=== PATIENT | male | born 1925 | race Caucasian/White ===

== ENCOUNTER 2016-06-03 12:32 | Inpatient (IN) | payer MEDICARE ==
[~2016-06-03] VITALS: Ht 160 cm; Wt 67.3 kg
--- NOTE | 2016-06-03 12:44 | ED.REPORT ---
HPI-General Illness Date of Service Jun 03, 2016 ED Provider: Jimbo Richmond DO An 89 year old male with a history of chronic leg weakness and back injury is brought to the ED via EMS due to urinary retention and lower abdominal distension. The pt had a recent kidney infection and was placed on antibiotics, which are associated with constipation. The pt has been unable to urinate at all today, though he urinated last night per family. He also reports that he has been unable to have a normal bowel movement recently. His last bowel movement was yesterday. These symptoms are accompanied by nasal congestion and decreased food intake. The pt denies chest pain, incontinence, or saddle numbness. The pt has chronic leg weakness which has been getting progressively worse. The weakness worsened dramatically in the last two weeks to the point that he is unable to get out of bed on his own. Per pt's family, he has been expressing suicidal ideation recently. He states that he is "tired of the pain and tired of everything," though he states that he will not take his own life. Nursing Notes Stated Complaint: POSSIBLE KIDNEY INFECTION Nursing Notes Reviewed: Yes Allergies: Coded Allergies: No Known Allergies (Unverified , 06/03/16) General Time Seen by MD: 12:43 Chief Complaint Other Hx Obtained From: Patient, Other family..., EMS Arrived By: Ambulance Sudden in Onset?: No Recent Healthcare: No recent hospitalization, Recent doctor visit Past Medical History Past Medical History depression kidney infection chronic leg weakness with falls back injury Past Surgical History none reported Smoking History Unknown if Ever Smoker Social History Other Social History: Good social support Ambulatory Status Independent Review of Systems urinary retention decreased food intake denies saddle numbness Full Review of Systems Ears / Nose / Throat: Reports: Nasal congestion Respiratory: Denies: Non-productive cough, Shortness of breath Cardiovascular: Denies: Chest pain GI: Reports: Abdominal pain, Constipation Male: Denies Incontinence Musculoskeletal: Denies: Back pain, Neck pain Skin: Denies Rash Complete sys rev & neg: except as marked. Physical Exam Vital Signs Vital Signs Date Time Temp Pulse Resp B/P Pulse Ox O2 Delivery O2 Flow Rate FiO2 06/03/16 15:06 36.8 69 12 142/48 100 Room Air 06/03/16 14:52 69 12 142/48 100 Room Air 06/03/16 13:07 36.8 68 18 177/62 100 Initial VS: Reviewed General/Constitutional: Awake, Alert eyes closed Head / Eyes: Atraumatic, Normocephalic, PERRL, EOMI ENT: Atraumatic, Airway patent Mouth: Positive: Mucous membranes dry Neck: Atraumatic, Supple, Full range of motion Respiratory / Chest: Atraumatic, Breath sounds NL, Breath sounds = bilat, No respiratory distress Cardiovascular: Heart rate NL, Regular rhythm, Heart sounds NL Abdomen: Atraumatic, Soft, Non-tender mild distention Back: Atraumatic, Full range of motion Upper Extremities Upper Extremity / MS: Atraumatic, Full range of motion Lower Extremity / Pelvis / MS: Atraumatic, Full range of motion lower extremities globally weak 4/5 without focal deficit Skin: Atraumatic, Color NL, No rash, Warm, Dry Neurologic: Oriented X3, Speech NL, No motor deficits, No sensory deficits peroneal sense intact Psychiatric: Affect NL depressed with suicidal thoughts denies intent Interpretation & Diagnostics Lab Results Interpretation Result Diagram: 06/03/16 1349 06/03/16 1349 Test 06/03/16 13:13 06/03/16 13:49 Urine Color Straw (YELLOW) Urine Appearance Clear (CLEAR,HAZY) Urine pH 8.0 (5.0-8.0) Urine Specific [place] 1.010 (1.003-1.035) Urine Protein Negativemg/dL (NEG,TRACE) Urine Glucose (UA) Negativemg/dL (NEGATIVE) Urine Ketones Tracemg/dL (NEGATIVE) Urine Occult Blood Trace (NEGATIVE) Urine Nitrite Negative (NEGATIVE) Urine Bilirubin Negative (NEGATIVE) Urine Urobilinogen Normalmg/dL (NORMAL) Urine Leukocyte Esterase Negative (NEGATIVE) Urine RBC 0-2/hpf (0-2) Urine WBC 0-5/hpf (0-5) Urine Epithelial Cells Occasional/hpf (NONE-MOD) Urine Crystals Amorphous phosphates Urine Bacteria Few/hpf (NONE-FEW) Urine Hyaline Casts None/lpf (NONE) Urine Granular Casts None seen (NONE SEEN) Urine Waxy Casts None seen (NONE SEEN) Urine Red Blood Cell Casts None seen (NONE SEEN) Urine White Blood Cell Casts None seen (NONE SEEN) Urine Mucus None seen (None Seen) Urine Trichomonas None seen (NONE SEEN) Urine Yeast None (NONE SEEN) Urinalysis Comment None Urine Culture Reflexed Not indicated White Blood Count 7.2th/mm3 (3.8-10.1) Red Blood Count 3.37mil/mm3 (4.40-5.80) Hemoglobin 10.9g/dL (13.8-17.2) Hematocrit 32.1% (41.0-50.0) Mean Corpuscular Volume 95.3fL (81-100) Mean Corpuscular Hemoglobin 32.3pg (27.0-35.0) Mean Corpuscular Hemoglobin Concent 34.0% (32.0-37.0) Red Cell Distribution Width 13.2% (12.3-15.4) Platelet Count 286bil/L (150-400) Neutrophils (%) (Auto) 79.0% (40-74) Lymphocytes (%) (Auto) 11.1% (14-46) Monocytes (%) (Auto) 9.2% (4-12) Eosinophils (%) (Auto) 0.3% (0-5) Basophils (%) (Auto) 0.1% (0-3) Sodium Level 125mEq/L (134-144) Potassium Level 4.0mEq/L (3.5-5.2) Chloride Level 87mEq/L (97-108) Carbon Dioxide Level 25mmol/L (18-29) Blood Urea Nitrogen 21mg/dL (8-27) Creatinine 1.24mg/dL (0.76-1.27) Estimat Glomerular Filtration Rate 58mL/min (>59) Glucose Level 99mg/dL (60-99) Calcium Level 8.4mg/dL (8.5-10.1) Total Bilirubin 0.7mg/dL (0.0-1.2) Aspartate Amino Transf (AST/SGOT) 32U/L (0-50) Alanine Aminotransferase (ALT/SGPT) 14U/L (0-44) Alkaline Phosphatase 62U/L (25-160) Total Protein 6.3g/dL (6.4-8.4) Albumin 3.5g/dL (3.4-5.0) X-Ray Abdominal Interpretation IMPRESSION: Moderate stool consistent with constipation. No gross obstruction. Dictated by: Rhonda Acuña M.D. on 06/03/2016 at 13:53 Approved by: Rhonda Acuña M.D. on 06/03/2016 at 13:53 Interpretation / Wet Read by: Interpret - Radiologist Re-Eval/Medical Decision Med Decision/Clinical Course Patient presents with a host of different complaints, ultimately he has moderate to severe hyponatremia with a sodium of 125, urinary retention which is likely a combination of BPH and recent anticholinergic use (Benadryl). He has ongoing chronic back pain without new focal neurologic numbness or weakness and without loss of perineal sensation. He has severe constipation. Additionally he has reported thoughts of suicide and self-harm. He is seen by social work for this and this is related to the admission team. Source of Hx: Old records Time of Eval: 12:43 Re-Evaluation/Progress Note: Pt and family informed of the need for admission during the initial interview. Pt and family understand and agree with the plan. All questions are addressed at this time. Consultation : Referral / Consult Name: Arcelia Downing MD Consulted With: Hospitalist Call Returned at: 15:10 Horse Riding Coach Or Instructor: Agrees with eval, Agrees with plan, Accepts admit Note: Spoke with Dr. Downing, hospitalist, regarding the pt's case. Dr. Downing agrees with the evaluation and agrees to admit the pt. Counseled Regarding: Diagnosis, Lab results, Need for admission Discharge & Departure Primary Impression: Hyponatremia Disposition: ADMITTED TO HOSPITAL Discharge Condition All VS Reviewed: Yes Condition: Stable Referrals: Thomas Urias MD (PCP) Khanh Zamarripa Attestation Portions of this note were transcribed by Waldemar Smith I, Dr. Richmond personally performed the history, physical exam and medical decision-making; I reviewed and confirmed the accuracy of the information in the transcribed note. Signed by: Milena Velázquez, 06/03/16 and 13:23. copies to: Khanh Zamarripa DO; Thomas Urias MD, Timothy S DO Jun 03, 2016 12:44 WALDEMAR SMITH Jun 03, 2016 13:29
[2016-06-03 13:07] VITALS: BP 177/62; PULSE 68; RESP 18; O2SAT 100
[2016-06-03 13:59] LABS: BASOPHILS % (AUTO) 0.1 % (0-3); EOSINOPHILS % (AUTO) 0.3 % (0-5); MONOCYTES % (AUTO) 9.2 % (4-12); Mean Corpuscular Hemoglobin 32.3 pg (27.0-35.0); Mean Corpuscular Volume 95.3 fL (81-100); Platelet Count 286 bil/L (150-400)
--- NOTE | 2016-06-03 13:59 | DRSVH ---
PROCEDURE: X-RAY ACUTE ABDOMINAL SERIES ([id number]) INDICATIONS: abd pain, constipation, unable to ambulate TECHNIQUE: One view chest and two views of the abdomen were acquired. COMPARISON: None. FINDINGS: Surgical changes and devices: None. Chest: Chronic interstitial changes are present within the lungs. Heart size is normal. No pleural e ffusions. No pneumoperitoneum. Abdomen: Bowel gas pattern is normal. Moderate stool is present. No suspicious calcifications. Vis ualized solid organ contours appear normal. Bones: No suspicious bony lesions. IMPRESSION: Moderate stool consistent with constipation. No gross obstruction. Dictated by: Rhonda Acuña M.D. on 06/03/2016 at 13:53 Approved by: Rhonda Acuña M.D. on 06/03/2016 at 13:53
[2016-06-03 14:21] LABS: APPEARANCE,URINE CLEAR (CLEAR,HAZY); COLOR,URINE STRAW (YELLOW); OCCULT BLOOD,URINE TRACE (NEGATIVE); UROBILINOGEN,URINE NORMAL (NORMAL)
[2016-06-03] MEDS ORDERED: 0.9% Sodium Chloride 1,000 ML IV SCH ×2 (14:30→15:18)
[2016-06-03 14:52] VITALS: BP 142/48; PULSE 69; RESP 12; O2SAT 100
[2016-06-03 15:06] VITALS: BP 142/48; PULSE 69; RESP 12; O2SAT 100
[2016-06-03] MEDS ORDERED: Ondansetron 2 mg/mL 2 mL Inj IVPUSH PRN (15:20)
--- NOTE | 2016-06-03 15:30 | PCM.HPMED ---
Subjective Date of Service Jun 03, 2016 Primary Provider: Admitting Physician: Yaakov Milan MD Primary Care Physician: Thomas Urias MD Attending Physician: Yaakov Milan MD Chief Complaint: unable to void since yesterday HISTORY was OBTAINED FROM PATIENT / MEDITECH NOTES History of present illness 89Y M, just takes vit D, eats very well, drinks little, c/o unable to void since yesterday, associated constipation - verified on today's KUB, no GERD symptoms, found to have Na 125. Gradual debility per family, baseline 1 person assist w/ walker. no saddle paresthesia, intermittent fingers feet paresthesia/swelling. no weight gain/loss. per daughter SI last week and asked family to take his gun. He denies depression, just fatigued and chronic back pain from compression fractures. productive cough started yesterday. In the ER NS1L, morphine 1mg, coude rios w/ 400cc UOP, negative UA for infection, In the hough, Cr improved after NS1L but Na stayed same, no less. Review of Systems - none of the following - F/C/sick contact / wt change/ DAVIS / / cp / acid reflux / n/v/diarrhea / bleeding/bruising / rash ambulates baseline right calf larger than left Past Medical History FE-def anemia 2009 EGD/colonoscopy1.Mild distal esophagitis. Mild gastritis with punctate superficial erosions. Duodenitis with small ulcers..Small hiatal hernia. no follow up depression kidney infection chronic leg weakness with falls back injury hernia repair Social occasional EtOH distant social smoker FAMILY HX gastric cancer Exam on admission 2L O2 NAD A and O x 3 mood affect WNL NC/AT no icterus no injected eyes EOMI PERRL /no pharyngeal lesions/ no oral lesions / hearing intact Supple neck mild crackles bilateral, equal chest rise / no accessory muscle use / speaks in full sentences / no rrw RRR S1 S2 / no mrg / 2+ radial pulses Soft nt nd + BS no hepatosplenomegaly No sanchez edema no cyanosis no ecchymosis of lower extremities No rash / no jaundice ULRICH [id number] UA - negative nitrite and negative leukocyte esterase negative yeast left shift LFT neg Imaging X-RAY ACUTE ABDOMINAL SERIES ([id number]) INDICATIONS: abd pain, constipation, unable to ambulate TECHNIQUE: One view chest and two views of the abdomen were acquired. COMPARISON: None. FINDINGS: Surgical changes and devices: None. Chest: Chronic interstitial changes are present within the lungs. Heart size is normal. No pleural effusions. No pneumoperitoneum. Abdomen: Bowel gas pattern is normal. Moderate stool is present. No suspicious calcifications. Visualized solid organ contours appear normal. Bones: No suspicious bony lesions. IMPRESSION: Moderate stool consistent with constipation. No gross obstruction. Active issues and reason for admission Hyponatremia, unclear if combination or just euvolemic-Siadh, suspect chronic -- U Na 50, Uric acid normal on admission, U Osm pending, TSH, BNP, d-dimer --already on fluid restriction at home per family - eats food, drinks little --no better w/ 1LNS, 75cc./hr saline but now crackles developed, hold IVF --no home medications --pending echo TYESHA, component --Creatinine improved rios and 1L NS Urinary retention/constipation, likely associated w/ BPH -- Bladder rest with Rios, history of UTI - repeat UA tomorrow, start flomax now -- MiraLAX daily -- IV fluids --consider renal U/S if worse Cr to evaluate for hydronephrosis Suicidal ideation, denies currently, just c/o fatigue -- Pending psychiatry, Dr Isabel, hopefully recs for NSRI/SSRI that can help w/ chronic back pain -- Pending vitamin D/B12/folate levels, evaluate pseudodementia/depression Debility/poor mobility/chronic back pain due to compression fractures -- Pending PT -- vit D 50 k now New O2, prn duonebs Chronic issues known prior to admission, present on admission GERD/duodenitis history 2009 -- PPI for now Diet regular DVT prophylaxis lovenox Code full Disposition inpatient Assessment and plan were discussed with patient family. Allergies Coded Allergies: No Known Allergies (Unverified , 06/03/16) PMH Social History Hx Alcohol Use: Yes (occasional) Hx Substance Use: No Smoking Status: Unknown if Ever Smoker Exam Vital Signs Vital Sign - Last Date Time Temp Pulse Resp B/P Pulse Ox O2 Delivery O2 Flow Rate FiO2 06/03/16 15:06 36.8 69 12 142/48 100 Room Air Lab and Diagnostics Result Diagram: 06/03/16 1349 06/03/16 1349 Arcelia Downing MD Jun 03, 2016 15:30
--- NOTE | 2016-06-03 16:00 | NUR ---
Arrival Pt arrived to the floor from ER. Admission requirements met by this RN, pts spouse and daughter states he does not take meds daily at home, that he only takes an iron and multivitamin daily. Pt also states he has a shot once every 6 weeks for his bones, unsure of the medication name. Pt has a f/c for urine retention, pt unable to ambulate he states because of prior injuries where he had fallen off a ladder.
[2016-06-03 16:29] VITALS: BP 176/82; PULSE 65; RESP 18; O2SAT 99
[2016-06-03] MEDS ORDERED: Albuterol-Ipratropium 3 mL Inhalation Solution NEB PRN (16:50)
[2016-06-03] MEDS: Pantoprazole 20 mg ER24 Tablet PO SCH (17:24)
[2016-06-03] MEDS: Polyethylene Glycol (PEG) 17 Gm Powder PO SCH (17:25)
[2016-06-03] MEDS ORDERED: hydrALAZINE 20 mg/mL Inj IV PRN (18:05)
[2016-06-03] MEDS ORDERED: FERR325C PO (18:34)
[2016-06-03] MEDS ORDERED: CALC-140 PO (18:36)
[2016-06-03 19:37] VITALS: BP 137/61; PULSE 95; RESP 20; O2SAT 97
--- NOTE | 2016-06-04 00:34 | NUR ---
Pain FELDT score 1-2 earlier this evening Pt given 2 tablets of tyelnol Currently resting comfortably on his left side. Turning pt q2-3 hours Care ongoing.
[2016-06-04 04:25] VITALS: BP 132/70; PULSE 70; RESP 20; O2SAT 97
[2016-06-04 06:30] LABS: APPEARANCE,URINE HAZY (CLEAR,HAZY); COLOR,URINE YELLOW (YELLOW); OCCULT BLOOD,URINE MODERATE (NEGATIVE); PH,URINE 6.5 (5.0-8.0); UROBILINOGEN,URINE NORMAL (NORMAL)
--- NOTE | 2016-06-04 06:47 | PCM.PNMED ---
Subjective Date of Service Jun 04, 2016 Subjective HPI as per admitting physician: History of present illness 89Y M, just takes vit D, eats very well, drinks little, c/o unable to void since yesterday, associated constipation - verified on today's KUB, no GERD symptoms, found to have Na 125. Gradual debility per family, baseline 1 person assist w/ walker. no saddle paresthesia, intermittent fingers feet paresthesia/swelling. no weight gain/loss. per daughter SI last week and asked family to take his gun. He denies depression, just fatigued and chronic back pain from compression fractures. productive cough started yesterday. In the ER NS1L, morphine 1mg, coude rios w/ 400cc UOP, negative UA for infection, In the hough, Cr improved after NS1L but Na stayed same, no less. Review of Systems - none of the following - F/C/sick contact / wt change/ DAVIS / / cp / acid reflux / n/v/diarrhea / bleeding/bruising / rash ambulates baseline right calf larger than left Past Medical History FE-def anemia 2009 EGD/colonoscopy1.Mild distal esophagitis. Mild gastritis with punctate superficial erosions. Duodenitis with small ulcers..Small hiatal hernia. no follow up depression kidney infection chronic leg weakness with falls back injury hernia repair S: Pt without any acute complaints, denies suicidal ideation at this time - denies f/c/sob/cp or new weakness - rios in place. baseline sedentary lifestyle, unable to ambulate d/t prior injury Exam Vital Signs Vital Sign - Last Date Time Temp Pulse Resp B/P Pulse Ox O2 Delivery O2 Flow Rate FiO2 06/04/16 04:25 36.7 70 20 132/70 97 Room Air Intake and Output 06/03/16 06/03/16 06/04/16 Cumulative From/Thru 15:00 23:00 07:00 06/03/16 13:07 - 06/04/16 05:07 Intake Total 1000 ml 1000 ml Output Total 300 ml 300 ml Balance 1000 ml -300 ml 700 ml Intake IV Total 1000 ml 1000 ml Output Urine Total 300 ml 300 ml Exam saturating well on RA NAD A and O x 3 mood affect WNL NC/AT no icterus no injected eyes EOMI PERRL /no pharyngeal lesions/ no oral lesions / hearing intact Supple neck mild crackles bilateral, good inspiratory effort, equal chest rise / no accessory muscle use / speaks in full sentences RRR S1 S2 / no mrg / 2+ radial pulses Soft nt nd + BS no hepatosplenomegaly No sanchez edema no cyanosis no ecchymosis of lower extremities No rash / no jaundice ULRICH IVs and Medications Medications Reviewed: Medications were reviewed in detail Lab and Diagnostics Result Diagram: 06/03/16 1349 06/03/16 2210 X-Rays, CTs and MRIs xray abdomen IMPRESSION: Moderate stool consistent with constipation. No gross obstruction. Dictated by: Rhonda Acuña M.D. on 06/03/2016 at 13:53 Cardiac Echo Impressions echo pending Assessment & Plan Hyponatremia, unclear if combination or just euvolemic-Siadh, suspect chronic -- U Na 50, Uric acid normal on admission, U Osm pending, TSH, BNP, d-dimer --already on fluid restriction at home per family - eats food, drinks little --no better w/ 1LNS, 75cc./hr saline but now crackles developed, hold IVF --no home medications --pending echo TYESHA, component --Creatinine improved rios and 1L NS Urinary retention/constipation, likely associated w/ BPH -- Bladder rest with Rios, history of UTI - repeat UA tomorrow, start flomax now -- MiraLAX daily -- IV fluids --consider renal U/S if worse Cr to evaluate for hydronephrosis Suicidal ideation, denies currently, just c/o fatigue -- Pending psychiatry, Dr Isabel, hopefully recs for NSRI/SSRI that can help w/ chronic back pain -- Pending vitamin D/B12/folate levels, evaluate pseudodementia/depression Debility/poor mobility/chronic back pain due to compression fractures -- Pending PT -- vit D 50 k now New O2, prn duonebs Chronic issues known prior to admission, present on admission GERD/duodenitis history 2009 -- PPI for now Diet regular DVT prophylaxis lovenox Code full Disposition inpatient Assessment and plan were discussed with patient family. Pain Evaluation: Adequate Pain Control GI Prophylaxis: Proton Pump Inhibitor VTE Prophylaxis: Sub-Q Enoxaparin Resuscitation Status: DNR/DNI:Do Not Resuscitate/Intubate Time spent 35 minutes spent sruthi pruitt and Ambrose Doran DO Jun 04, 2016 06:47
[2016-06-04 08:07] LABS: Free Thyroxine Index 0.8 (1.2-4.9); T3 Uptake 27 % (24-39); Thyroxine (T4) 3.1 ug/dL (4.5-12.0)
[2016-06-04 09:22] LABS: Mean Corpuscular Hemoglobin 32.4 pg (27.0-35.0); Mean Corpuscular Volume 96.1 fL (81-100)
[2016-06-04 09:28] VITALS: BP 118/57; PULSE 70; RESP 16; O2SAT 98
[2016-06-04] MEDS: Polyethylene Glycol (PEG) 17 Gm Powder PO SCH (09:29)
[2016-06-04] MEDS: Pantoprazole 20 mg ER24 Tablet PO SCH (09:29)
--- NOTE | 2016-06-04 10:54 | NUR ---
Problems Swallowing Contacted Dr. Loja with the following cook page: Patient does not appear to tolerate liquids, coughed when trying to give Miralax and audible gurgling could be heard. Speech Eval seems appropriate. Please advise. Thank you. Alison PRICE
--- NOTE | 2016-06-04 11:41 | NUR ---
Thickened Liquids/Miralax Contacted Dr. Loja with the following cook page: Patient evaluated by Speech Therapist, she recommends thickened liquids and stated Miralax thins out thickeners, so a pill would be best. Please advise. Thank you. Alison PRICE
--- NOTE | 2016-06-04 11:53 | NUR ---
Evaluation completed. Rec: [place]/Regular with medication whole in pureed. Spoke with RN regarding recommendation for lax pill as Miralax can thin out thickened liquids. CV RN to follow Please go to "Notes" then click on "Assessments and Notes" (bottom left corner of screen). Then select appropriate discipline tab on top of screen.
--- NOTE | 2016-06-04 12:17 | DRSVH ---
[facility] [address] [place] [address] Echocardiogram Report Name: LUBNA BREEN Jemal e: 06/04/2016 Height: 63 in Hospital Exam Location: [facility] Weight: 142 lb Gender: Male BSA: 1.7 m2 : 1925 Age: 89 yrs BP: 132/70 mmHg Reason For Study: WEAKNESS Ordering Physician: HOSPITALIST [facility] Performed By: Florencio Chavez Referring Physician: Dr. Paula Urias Interpretation Summary The left ventricle is normal in size. There is moderate concentric left ventricular hypertrophy. There is mild biatrial enlargement. The IVC is of normal diameter and collapses greater than 50% with a sniff. This suggests a low right atrial pressure of 3 mm Hg. No other echocardiographic abnormalities seen. Procedure: A two-dimensional transthoracic echocardiogram with color flow and Doppler was performed. The study quality was technically good. There is no prior echocardiogram noted for this patient. The patient was in normal sinus rhythm during the exam. Left Ventricle: The left ventricle is normal in size. There is moderate concentric left ventricular hypertrophy. The ejection fraction is estimated to be 75-80%. There are no focal wall motion abnormalities. Assessment of diastolic parameters indicates normal left ventricular diastolic function and normal filling pressures. Right Ventricle: The right ventricle is normal in size and function. Atria: There is mild biatrial enlargement. The interatrial septum is intact with no evidence for an atrial septal defect. Mitral Valve: There is moderate mitral annular calcification. There is trace mitral regurgitation. Aortic Valve: The aortic valve is trileaflet. The aortic valve is mildly calcified. Leaflet mobility is minimally reduced. There is moderate aortic valve sclerosis. There is no aortic valve stenosis. There is mild aortic regurgitation. Tricuspid Valve: The tricuspid valve is normal in structure and function. There is mild tricuspid regurgitation. The right ventricular systolic pressure is estimated at 32 mmHg assuming a right atrial pressure of 3 mm Hg. Pulmonic Valve: The pulmonic valve is normal in structure and function. There is trace pulmonic regurgitation. Great Vessels: The aortic root is normal size. The dimensions of the ascending aorta are normal. The pulmonary artery is normal size. The IVC is of normal diameter and collapses greater than 50% with a sniff. This suggests a low right atrial pressure of 3 mm Hg. Pericardium/ Pleura There is no pericardial effusion. There is no pleural effusion. MMode/2D Measurements & Calculations LVIDd: 4.2 cm LA dimension: 3.6 cm RA long axis LVOT diam: 2.3 cm LVIDs: 2.2 cm Ao root diam FS: 47.8 % LA A2 area: 22.8 cm RA area EPSS: 0.87 cm LA A4 area: 24.8 cm Aortic Jxn: 2.1 cm IVSd: 1.5 cm LA length (vol) : 21.6 cm asc Aorta Diam LVPWd: 1.3 cm RA vol LA vol: 82.9 ml : 81.8 ml Ao Arch Diam (Prox LA vol index RA Trans): 2.9 cm : 48.9 mm2 IVC diam: 1.9 cm LV lassiter. diameter/BSA LV sys. diameter/BSA (cm/m^2): 2.5 (cm/m^2): 1.3 Doppler Measurements & Calculations Ao V2 max MV E max gene MV E/A: 1.2 TR max gene : 135.6 cm/sec : 86.4 cm/sec Med Peak E' Gene : 267.4 cm/sec Ao max P.4 mmHg MV A max gene TR max PG Ao mean P.3 mmHg : 71.0 cm/sec E/E' med: 22.0 : 28.6 mmHg LVOT Max Gene Pulm A Revs Dur PA V2 max : 82.8 cm/sec : 75.4 cm/sec MV A dur PA mean PG INDIGO(I,D): 2.6 cm : 0.13 sec : 1.5 mmHg sev ratio: 0.64 AI P1/2t: 503.8 msec AI dec slope : 233.6 cm/s2c MV dec time: 0.21 sec Ao V2 mean LV V1 max PG PA V2 mean : 99.8 cm/sec : 58.3 cm/sec Ao V2 VTI: 28.8 cm LV V1 VTI PA pr(Accel) INDIGO(V,D): 2.5 cm2 : 18.6 cm : 29.1 mmHg INDIGO indexed to BSA Pulm A Revs Dur - MV (cm^2/m^2): 1.6 A Dur: -0.05 msec Reading Physician:12:16 PM
--- NOTE | 2016-06-04 12:49 | NUR ---
Bowel Management Contacted Dr. Loja with the following cook page: Patient was unable to fully take Miralax this morning due to swallowing issues, Speech Therapist recommended a pill over the Miralax due to Miralax degrading thickener. Patient's family requesting something for patient's constipation. Please advise. Thank you. Alison PRICE
[2016-06-04] MEDS: Senna-Docusate 8.6-50 mg Tablet PO SCH ×2 (13:00→13:12)
--- NOTE | 2016-06-04 13:35 | NUR ---
Evaluation completed. Please go to "Notes" then click on "Assessments and Notes" (bottom left corner of screen). Then select appropriate discipline tab on top of screen.
[2016-06-04 14:09] VITALS: BP 113/50; PULSE 75; RESP 18; O2SAT 98
--- NOTE | 2016-06-04 14:24 | NUR ---
CRISTI signed by pt's MARTHA
[2016-06-04 14:44] VITALS: BP 136/79; PULSE 89; RESP 18; O2SAT 94
[2016-06-04 18:23] VITALS: BP 130/64; PULSE 79; RESP 18; O2SAT 97
--- NOTE | 2016-06-04 20:15 | ER ---
[address] [address] EMERGENCY DEPARTMENT REPORT PATIENT: LUBNA BREEN : 1925 MR#: [id number] ADMIT: 06/03/2016 JOB ID: [id number] HISTORY: This is an 89-year-old, gentleman who was hospitalized on the [facility]. The patient was referred to me by Dr. Downing, but the doctor covering today is Dr. Loja and I spoke to him. I also talked to the nurse working with the patient by the name of Alison, and I also told talked to the patient's daughter and . Apparently, the patient has recently been verbalizing intent to harm himself. He had a loaded firearm on his bedside standing and he asked his to remove that. There has been a reduction in his functional capacity, simply his appetite is reduced. He is not sleeping. He states he is tired of the pain. He has also been having some trouble swallowing that makes input limited, intake limited. According to the , he has never attempted suicide before though his father did kill himself. The family assures me that they have removed the guns from his possession. According to Dr. Loja, the patient carries a diagnosis of depression. They are working out severe dementia TSH, B12, folate were fine. T3 and free T4 are low. TSH is awaited and that maybe something they need to work on. The patient apparently had a recent kidney infection. He struggled with pain issues related to back injury. He had abdominal distention. The urinary retention and the abdomen and distention glucose, related partly to a benign prostatic hypertrophy and the use of anti cholinergic medications. Other abnormalities include a borderline low sodium of 125, GERD, chronic iron-deficiency anemia and issues related to gastritis duodenitis and esophagitis and the patient recently had false. He has never been treated for depression before, according to the . He has never seen a psychiatrist before or had any kind of counseling. FAMILY HISTORY: Father killed himself but there appears to be no clear family history of bipolar disorder or schizophrenia. DRUGS AND ALCOHOL: Former smoker. Has not smoked for more than a year ago. Occasional alcohol. There is no clear history of an alcohol use disorder. MENTAL STATUS EXAMINATION: Difficult to watch. IMPRESSION: [place] IWould still go with major depressed episode, rule out major neurocognitive disorder, possibly vascular, with depression. [place] IIDeferred. [place] IIIRecent falls, recent urinary tract infection, issues related to esophagitis, gastritis, hyponatremia, gastroesophageal reflux disease, benign prostatic hypertrophy with urinary retention. [place] IVProblems related to living arrangements and level of care. [place] VGlobal assessment of functioning is . TREATMENT PLAN: 1. I discussed with Dr. Loja the possibility of using an antidepressant. I discussed that with the family. The daughter and the have power of securities attorney. They are agreeable to a trial. The patient does have difficulty swallowing. I spoke to the swallow eval specialist and she is going to put the patient on a nectar thick diet. 2. We will use mirtazapine since it will help with sleep and also target increase in reduced appetite. We will start with 7.5 mg a day, will watch for morning sedation. As far as placement goes, I think it may be important to involve the social service manager in helping with a higher level of placement. The patient's family has a studio apartment which has wheelchair access and they feel that that can be an option but they are going to require assistance with his management. I strongly feel that a short stay at a [facility] facility for 2-4 weeks to get the patient back on his feet would be very important and at the end of that depending on what his functional capacity is, deciding his placement would probably be the best way to go. He may need further increase in mirtazapine and I am going to request Psychiatry follow up with this patient if that is needed.
[2016-06-04 20:24] VITALS: BP 96/53; PULSE 83; RESP 18; O2SAT 96
--- NOTE | 2016-06-05 03:31 | NUR ---
Mirtazapine Pt took first does tonight, and has tolerated it well. Pt has been resting peacefully, easily aroused, pt denies anxiety or any SI.
[2016-06-05 05:06] VITALS: BP 138/72; PULSE 62; RESP 19; O2SAT 96
[2016-06-05 07:25] VITALS: BP 138/70; PULSE 67; RESP 18; O2SAT 97
[2016-06-05 07:47] VITALS: RESP 16; O2SAT 97
[2016-06-05] MEDS: Senna-Docusate 8.6-50 mg Tablet PO SCH ×2 (09:26→21:53)
[2016-06-05] MEDS: Pantoprazole 20 mg ER24 Tablet PO SCH (09:27)
--- NOTE | 2016-06-05 10:00 | NUR ---
Status Pt seen by Dr. Milan this am. To be placed on 1 L fluid restriction. Sign on pt door. Lex pimentel MD to determine whether to continue miralax as this would be most of days fluids. Pt stable and A&O. No complaints.
--- NOTE | 2016-06-05 10:03 | NUR ---
Social Work Initial Assessment: SW met with patient at bedside to discuss discharge plan. Information also verified with daughter Jeanne, . Patient is a 89 year old male admitted on 06/03/16 for hyponatremia. Patient payer as [employer]. Patient PCP as [facility] at [facility]. Patient resides with in [place]. Patient has no previous HHC or SNF history. Patient has a walker for use at home. Patient states having AD on file. Patient pharmacy of choice as [facility]. Patient daughter states patient and cared for each other needs and patient was driving prior to admit. PT recommendations discussed with patient and daughter. Choice list provided for review. Patient and family to review SNF choice list and to contact SW with [facility]. SNF transfer also pending [employer] auth. SW to follow. PLAN: Home with previously. Plan is SNF pending choice and [employer] auth. SW to follow pending clinical course Adriana HURT Addendum: 06/05/16 at 1008 by BRIAN GALEANO Amended: Links added. Addendum: 06/05/16 at 1642 by BRIAN GALEANO SW received phone call from daughter requesting referral to [facility] and [facility] WILFRIDO to send referral for review tomorrow. Adriana HURT
--- NOTE | 2016-06-05 10:45 | NUR ---
Activity Pt up and ambulated to javier with PT. Up in chair at bedside. A&Ox4. Humphrey to gravity drainage
[2016-06-05 12:07] LABS: Vitamin D, 25-Hydroxy 47.2 ng/mL (30.0-100.0)
[2016-06-05 12:15] VITALS: BP 121/67; PULSE 74; RESP 18; O2SAT 99
--- NOTE | 2016-06-05 14:21 | PCM.PNMED ---
Subjective Date of Service Jun 05, 2016 Subjective pt was more stronger today, eating well denied DAVIS, dizziness, Na 131 from 126 with fluid restriction. Exam Vital Signs Vital Sign - Last Date Time Temp Pulse Resp B/P Pulse Ox O2 Delivery O2 Flow Rate FiO2 06/05/16 12:15 36.8 74 18 121/67 99 Room Air Intake and Output 06/04/16 06/04/16 06/05/16 Cumulative From/Thru 15:00 23:00 07:00 06/03/16 13:07 - 06/05/16 06:39 Intake Total 480 ml 20 ml 1760 ml Output Total 350 ml 200 ml 850 ml Balance 130 ml -180 ml 910 ml Intake Oral 480 ml 0 ml 740 ml IV Total 0 ml 20 ml 1020 ml Output Urine Total 350 ml 200 ml 850 ml Exam NAD, comfortably laying down on the bed no JVD, MMM, no LAD, no nystagmus, PERRLA RRR, nl s1, s2 no mrg CTAB, no w,c S,ND,NT,normoactive BS+ warm, no edema, pulses 2/2 IVs and Medications Medications Reviewed: Medications were reviewed in detail Lab and Diagnostics Result Diagram: 06/04/16 0745 06/04/16 0745 X-Rays, CTs and MRIs xray abdomen IMPRESSION: Moderate stool consistent with constipation. No gross obstruction. Dictated by: Rhonda Acuña M.D. on 06/03/2016 at 13:53 Cardiac Echo Impressions echo pending Assessment & Plan acute, active #Hyponatremia, POA, seemed euvolemic given improvement with fluid restriction, [place] level, exam, possible SIADH, unclear onset but stated that he had low Na several yrs ago. -ft4/t4 suggestive of likely sick euthyroid, will repeat TSH, FT4 -continue fluid restriction <1liter, avoid IVF, #Urinary retention/constipation, likely associated w/ BPH --continue flomax, MiraLAX chg to colace 100 tid to limit fluid. -d/c rios today. check with serial bladder scan. chronic, stable, #TYESHA, mildly, prerenal vs postobstructive, resolved with IVF 1liters/rios, cr 0.99-1.04 seemed baseline. #reported Suicidal ideation, denies currently, just c/o fatigue -- Pending psychiatry, Dr Isabel, hopefully recs for NSRI/SSRI that can help w/ chronic back pain -- Pending vitamin D/B12/folate levels, evaluate pseudodementia/depression #Debility/poor mobility/chronic back pain due to compression fractures -- Pending PT -- vit D 50 #GERD/duodenitis history 2009, PPI for now Diet regular DVT prophylaxis lovenox Code full Disposition likely tomorrow if Na continues to increase GI Prophylaxis: Proton Pump Inhibitor VTE Prophylaxis: Sub-Q Enoxaparin Resuscitation Status: DNR/DNI:Do Not Resuscitate/Intubate Time spent 35min Yaakov Milan MD Jun 05, 2016 14:12
--- NOTE | 2016-06-05 15:06 | NUR ---
Humphrey Humphrey dc'd w/o complication at 1500. Educated pt on reason for dc and instructed on need to monitor ability to urinate in next 4 to 6 hours. urinal at bedside.
--- NOTE | 2016-06-05 16:36 | NUR ---
Activity Up OOb ambulating about 150 feet in javier this evening, up in chair most of day
[2016-06-05 16:45] VITALS: BP 115/68; PULSE 62; RESP 18; O2SAT 98
[2016-06-05] MEDS ORDERED: Levothyroxine 100 mCg/5 mL Inj IV SCH (17:20)
[2016-06-05 20:27] VITALS: BP 114/57; PULSE 76; RESP 19; O2SAT 97
--- NOTE | 2016-06-06 02:02 | NUR ---
GI/ Pt has been on bedpan multiple times to try to have a BM unsuccessfully. Pt has been passing gas, normal bowel tones. At times patient has become frustrated and yells out in frustration, but is always able to calm down. Pt has also been very concerned about his urination, wants to constantly have urinal in place. Pt reassured about the pad underneath and reoriented to call light, pt resting well.
[2016-06-06 04:08] LABS: TOTAL TRIIODOTHYRONINE 55 ng/dL (71-180)
[2016-06-06 05:02] VITALS: BP 162/75; PULSE 64; RESP 18; O2SAT 99
[2016-06-06 06:12] LABS: BASOPHILS % (AUTO) 0.3 % (0-3); EOSINOPHILS % (AUTO) 4.2 % (0-5); MONOCYTES % (AUTO) 10.3 % (4-12); Mean Corpuscular Hemoglobin 32.7 pg (27.0-35.0); Mean Corpuscular Volume 97.8 fL (81-100); NEUTROPHILS % (AUTO) 69.6 % (40-74); Platelet Count 269 bil/L (150-400)
[2016-06-06 06:14] LABS: Vitamin B12 718 pg/mL (211-946)
[2016-06-06 06:37] LABS: Magnesium 2.2 mg/dL (1.6-2.6); Phosphorus 2.2 mg/dL (2.5-4.9)
[2016-06-06] MEDS: Pantoprazole 20 mg ER24 Tablet PO SCH (07:45)
[2016-06-06] MEDS: Senna-Docusate 8.6-50 mg Tablet PO SCH ×2 (07:45→20:53)
[2016-06-06 08:03] VITALS: BP 171/73; PULSE 65; RESP 16; O2SAT 97
--- NOTE | 2016-06-06 11:18 | PCM.PNMED ---
Subjective Date of Service Jun 06, 2016 Subjective Patient feels stronger Able to ambulate 100 feet with physical therapy, recommended to go home with home health Found to have a significant hypothyroid state, started levothyroxine replacement Patient is eating okay with good appetite, Exam Vital Signs Vital Sign - Last Date Time Temp Pulse Resp B/P Pulse Ox O2 Delivery O2 Flow Rate FiO2 06/06/16 08:03 36.7 65 16 171/73 97 Room Air Intake and Output 06/05/16 06/05/16 06/06/16 Cumulative From/Thru 15:00 23:00 07:00 06/03/16 13:07 - 06/06/16 06:29 Intake Total 300 ml 2060 ml Output Total 150 ml 125 ml 1125 ml Balance 150 ml -125 ml 935 ml Intake Oral 300 ml 1040 ml IV Total 1020 ml Output Urine Total 150 ml 125 ml 1125 ml Exam NAD, comfortably laying down on the bed no JVD, MMM, no LAD, no nystagmus, PERRLA RRR, nl s1, s2 no mrg CTAB, no w,c S,ND,NT,normoactive BS+ warm, no edema, pulses 2/2 IVs and Medications Medications Reviewed: Medications were reviewed in detail Lab and Diagnostics Result Diagram: 06/06/16 0535 06/06/16 0535 X-Rays, CTs and MRIs xray abdomen IMPRESSION: Moderate stool consistent with constipation. No gross obstruction. Dictated by: Rhonda Acuña M.D. on 06/03/2016 at 13:53 Cardiac Echo Impressions The left ventricle is normal in size. There is moderate concentric left ventricular hypertrophy. There is mild biatrial enlargement. The IVC is of normal diameter and collapses greater than 50% with a sniff. This suggests a low right atrial pressure of 3 mm Hg. No other echocardiographic abnormalities seen. 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 -continue fluid restriction <1liter, avoid IVF, #Hypothyroid state, POA, likely Karri, until proven otherwise, pt stated that he had thyroid problem, lost wt significantly at age 16, didn't hear any final diagnosis, was not on any LT4 replacement in the past. Given degree of TSH >60, low ft4/t3, indicated for replacement, likely real primary hypothyroidism. -awaits anti TPO, likely to have result later -s/p LT4 25mcg iv 06/05, continue 50mcg qd, repeat TFT in 4wks to adjust dosage given age, risk of osteoporosis #Urinary retention/constipation, likely associated w/ BPH --continue flomax, MiraLAX chg to colace 100 tid to limit fluid. -d/yumiko rios, check with serial bladder scan. chronic, stable, #TYESHA, mildly, prerenal vs postobstructive, resolved with IVF 1liters/rios, cr 0.99-1.04 seemed baseline. #reported Suicidal ideation, denies currently, just c/o fatigue, follow up outpt. #Debility/poor mobility/chronic back pain due to compression fractures, control with tylenol #GERD/duodenitis history 2009, PPI for now #mild biatrial enlargement, found in TTE, nl EF, no restrictive physiology, could be related to hypothyroidism, follow up cardiology outpt Diet regular DVT prophylaxis lovenox Code full Disposition likely tomorrow home with HH, GI Prophylaxis: Proton Pump Inhibitor VTE Prophylaxis: Sub-Q Enoxaparin Resuscitation Status: DNR/DNI:Do Not Resuscitate/Intubate Time spent 35 minutes Yaakov Milan MD Jun 06, 2016 11:18
[2016-06-06 16:35] VITALS: BP 111/64; PULSE 68; RESP 18; O2SAT 97
--- NOTE | 2016-06-06 17:10 | NUR ---
Urination/Bowel pattern Pt voiding only 250ml so far this shift. Bladder scanned after voiding and PVR was 120ml. It appears as if patient needs encouragement to void. Denies any bladder discomfort. He has had minimal PO intake of fluids today as well. The patient has was assisted to the bedside commode and had a large, soft BM.
[2016-06-06 20:38] VITALS: BP 128/67; PULSE 76; RESP 17; O2SAT 99
--- NOTE | 2016-06-07 01:20 | NUR ---
Mentation Pt has had intermittent disorientation when waking, easy to reorient. O2 sats drop when patient is moving in bed, appears to be related to the confusion/disorientation.
[2016-06-07 05:57] VITALS: BP 149/73; PULSE 65; RESP 16; O2SAT 99
[2016-06-07 06:24] LABS: Mean Corpuscular Hemoglobin 32.5 pg (27.0-35.0)
--- NOTE | 2016-06-07 06:37 | NUR ---
Pt did not void tonight, bladder scan showed 529. Dr Card paged, no orders at this time.
[2016-06-07 06:55] LABS: Magnesium 2.1 mg/dL (1.6-2.6); Phosphorus 2.5 mg/dL (2.5-4.9)
[2016-06-07 07:10] LABS: BASOPHILS % (AUTO) 0.4 % (0-3); EOSINOPHILS % (AUTO) 2.7 % (0-5); MONOCYTES % (AUTO) 14.2 % (4-12); Mean Corpuscular Volume 96.6 fL (81-100); NEUTROPHILS % (AUTO) 62.3 % (40-74); Platelet Count 297 bil/L (150-400)
[2016-06-07] MEDS ORDERED: LEVO50TA6 PO (07:14)
[2016-06-07] MEDS ORDERED: TAMS0.4C98 PO (07:14)
--- NOTE | 2016-06-07 07:18 | PCM.DIMED ---
Discharge Instructions Date of Service Jun 07, 2016 Dates of Hospitalization Jun 03, 2016 at 15:23 Discharge Diagnosis Discharge Diagnosis Hyponatremia secondary to Hypothyroidism Medication Instructions Please take Flomax 0.4mg daily, started for possible prostate problem Please take levothyroxine 50mcg daily before breakfast, dosage will be adjusted later in the clinic Patient Instructions you were hospitalized with weakness, low sodium level, found to have low thyroid function. Please note that your thyroid function has to be monitored, may need thyroid imagings as well, folllow up with your primary doctor, possible endocrinology doctor. Please restrict your fluid mildly less than 2liters per day, we expect your sodium to go up with thyroid hormone replacement Follow-up plan These follow with her primary doctor in 2 weeks Follow-up Provider: Thomas Urias MD Follow-up with PCP in: 2 weeks Yaakov iMlan MD Jun 07, 2016 07:18
[2016-06-07] MEDS: Pantoprazole 20 mg ER24 Tablet PO SCH (09:27)
[2016-06-07] MEDS: Senna-Docusate 8.6-50 mg Tablet PO SCH ×2 (09:27→19:54)
--- NOTE | 2016-06-07 09:49 | NUR ---
Gave access and faxed facesheet to [facility] and [employer] per previous ENTRY LEVEL FINANCE notes. Patient has [employer] and will need an authorization. Updated ENTRY LEVEL FINANCE Addendum: 06/07/16 at 0959 by JOSH REED CM Did NOT send to [facility] this is not contracted facility for [facility] MCR Addendum: 06/07/16 at 1035 by JOSH REED CM [facility] can accept today pending [facility] authorization Addendum: 06/07/16 at 1055 by JOSH REED CM Called Clemencia Sellers CM at [facility] and asked for review of patient to transfer to [facility]
--- NOTE | 2016-06-07 10:54 | PCM.PNMED ---
Subjective Date of Service Jun 07, 2016 Subjective Patient remained stable overnight Exam Vital Signs Vital Sign - Last Date Time Temp Pulse Resp B/P Pulse Ox O2 Delivery O2 Flow Rate FiO2 06/07/16 09:17 Room Air 06/07/16 05:57 36.4 65 16 149/73 99 Intake and Output 06/06/16 06/06/16 06/07/16 Cumulative From/Thru 15:00 23:00 07:00 06/03/16 13:07 - 06/07/16 06:12 Intake Total 400 ml 10 ml 2470 ml Output Total 250 ml 0 ml 1375 ml Balance 150 ml 10 ml 1095 ml Intake Oral 400 ml 10 ml 1450 ml IV Total 1020 ml Output Urine Total 250 ml 0 ml 1375 ml Exam NAD, comfortably laying down on the bed no JVD, MMM, no LAD, no nystagmus, PERRLA RRR, nl s1, s2 no mrg CTAB, no w,c S,ND,NT,normoactive BS+ warm, no edema, pulses 2/2 IVs and Medications Medications Reviewed: Medications were reviewed in detail Lab and Diagnostics Result Diagram: 06/07/16 0600 06/07/16 0600 X-Rays, CTs and MRIs xray abdomen IMPRESSION: Moderate stool consistent with constipation. No gross obstruction. Dictated by: Rhonda Acuña M.D. on 06/03/2016 at 13:53 Cardiac Echo Impressions The left ventricle is normal in size. There is moderate concentric left ventricular hypertrophy. There is mild biatrial enlargement. The IVC is of normal diameter and collapses greater than 50% with a sniff. This suggests a low right atrial pressure of 3 mm Hg. No other echocardiographic abnormalities seen. 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 -continue mild fluid restriction <2liter, avoid IVF, #Hypothyroid state, POA, pt stated that he had thyroid problem, lost wt significantly at age 16, didn't hear any final diagnosis, was not on any LT4 replacement in the past. Given degree of TSH>60, low ft4/t3, indicated for replacement, likely real primary hypothyroidism although anti TPO negative, -s/p LT4 25mcg iv 06/05, continue 50mcg qd, repeat TFT in 4wks to adjust dosage given age, risk of osteoporosis #Urinary retention/constipation, likely associated w/ BPH --continue flomax, MiraLAX chg to colace 100 tid to limit fluid. -d/yumiko rios 06/06, check with serial bladder scan today chronic, stable, #TYESHA, mildly, prerenal vs postobstructive, resolved with IVF 1liters/rios, cr 0.99-1.04 seemed baseline. #reported Suicidal ideation, denies currently, just c/o fatigue, follow up outpt. #Debility/poor mobility/chronic back pain due to compression fractures, control with tylenol #GERD/duodenitis history 2009, PPI for now #mild biatrial enlargement, found in TTE, nl EF, no restrictive physiology, could be related to hypothyroidism, follow up cardiology outpt Diet regular DVT prophylaxis lovenox Code full Disposition delayed d/c due to pending dispo, urinary retention, likely tomorrow home with vs SNF GI Prophylaxis: Proton Pump Inhibitor VTE Prophylaxis: Sub-Q Enoxaparin Resuscitation Status: DNR/DNI:Do Not Resuscitate/Intubate Time spent 35 minutes Yaakov Milan MD Jun 07, 2016 10:54
[2016-06-07 12:48] VITALS: BP 154/78; PULSE 79; RESP 16; O2SAT 98
--- NOTE | 2016-06-07 13:37 | NUR ---
Social Work: Readiness for d/c Data: Pt is on day 4 of hospitalization. EMR reviewed. Pt discussed in rounds, states pt likely ready for d/c tomorrow. UR specialist has started insurance authorization process. ELECTRIC MOTOR FITTER met with pt, , and daughter at bedside. ELECTRIC MOTOR FITTER explained that [facility] has accepted pt pending auth. ELECTRIC MOTOR FITTER stated that although pt was referred to [facility] [place] [facility], [facility] does not contract with pt's insurance. Pt's daughter states that [facility] was their preference anyway. ELECTRIC MOTOR FITTER explained that there is potential for pt's insurance to deny covering the SNF stay and if that were to happen pt would either need to go to SNF private pay or go home with HH and private pay caregiving if they would like assistance. They state understanding. Pt's daughter mentioned that they are getting a room ready for pt and that they plan to have it all ready by Sunday. ELECTRIC MOTOR FITTER communicated with them that pt will need to d/c when he is medically stable and that options can be discussed if insurance does not cover the stay. ELECTRIC MOTOR FITTER will continue to follow. Assessment: Pt who is independent at baseline. Plan: Pt will d/c to [facility] pending insurance authorization. If insurance denies authorization, pt will d/c home with family and HH, possibly with private pay caregiving as well. ELECTRIC MOTOR FITTER will continue to follow. BLU Camacho
--- NOTE | 2016-06-07 13:53 | NUR ---
Activity/Plan of Care: Pt up ambulating in hallway with PT this am with FWW, tolerated activity well. Sat up in chair for breakfast and into morning for about 2 hours, tolerated sitting up well. and daughter at bedside this afternoon and informed of plan of care at d/c by high school social studies teacher.
--- NOTE | 2016-06-07 16:11 | NUR ---
VOID Pt reported that he feels like his bladder is getting full again. Pt instructed to try and use a urinal as he was administered flomax. Pt has successfully voided 200cc via urinal.
[2016-06-07 21:06] VITALS: BP 100/54; PULSE 100; RESP 17; O2SAT 96
--- NOTE | 2016-06-07 22:01 | NUR ---
Void/Activity Pt up OOB with one assist to attempt to void. He has no urge to void. He is unable to void. He requires alot of heavy assitance to get up OOB to stand Campbell alarm in place.
[2016-06-08 04:19] VITALS: BP 135/75; PULSE 69; RESP 20; O2SAT 98
[2016-06-08 06:54] LABS: BASOPHILS % (AUTO) 0.4 % (0-3); EOSINOPHILS % (AUTO) 2.6 % (0-5); MONOCYTES % (AUTO) 13.5 % (4-12); Mean Corpuscular Hemoglobin 32.9 pg (27.0-35.0); Mean Corpuscular Volume 98.2 fL (81-100); NEUTROPHILS % (AUTO) 60.5 % (40-74); Platelet Count 302 bil/L (150-400)
[2016-06-08 07:21] LABS: Magnesium 1.9 mg/dL (1.6-2.6); Phosphorus 2.9 mg/dL (2.5-4.9)
[2016-06-08 08:00] VITALS: BP 133/66; PULSE 73; RESP 18; O2SAT 96
[2016-06-08] MEDS: Senna-Docusate 8.6-50 mg Tablet PO SCH ×2 (08:05→20:36)
[2016-06-08] MEDS: Pantoprazole 20 mg ER24 Tablet PO SCH (08:05)
--- NOTE | 2016-06-08 08:32 | NUR ---
Called and left message for Clemencia Sellers regarding transfer to [facility] today, patient is planned to go to [facility] today pending authorization. Addendum: 06/08/16 at 1335 by JOSH REED Clemencia has reviewed patient and is sending it to her medical reception specialist for review, patient walked 50 ft with Min A. Faxed packet to Clemencia at [employer] [phone]
--- NOTE | 2016-06-08 14:59 | NUR ---
Mentation patient is alert and oriented X3. Able to make needs known. denies pain or discomfort so far this shift. Stable vital signs. patient is up for both meals in room independent with eating after set up. per night report 100cc UO and 20cc so far this shift. patient has no urge to void. Encouraged to void and offered fluids. bladder scan 198cc. paged doctor and aware. family at the bed side. denies cardiac or respiratory discomfort. BM this shift. Able to use call light and with in reach for safety. stable mood. Will continue to monitor vital signs, pain, safety, and urinary out put.
--- NOTE | 2016-06-08 15:53 | NUR ---
Discharge pending Verbal orders received for discharge to [facility]. Pending authorization form [employer] per case management and social staff worker. Family aware. Paged doctor r/t transportation here to [facility] patient. Doctor also aware that transportation sent back due to pending authorization per case management. case management will call back when authorization is approved.
--- NOTE | 2016-06-08 16:05 | NUR ---
Social Work: Continued Discharge Planning Build And Release Manager spoke with patient, patient's daughter and patient's and notified them that we are still pending approval from [facility] for authorization to [facility] SNF. They voiced understanding. Patient's daughter stated that the patient does not have a bed and they are attempting to find a hospital bed to purchase. Patient's physician was notified that we a pending authorization from patient insurance for SNF. SW notified [facility] that we are still waiting for authorization from the patient's insurance. SW will continue to follow. Josefa Benz, OLAYINKA, ACM
--- NOTE | 2016-06-08 17:28 | PCM.PNMED ---
Subjective Date of Service Jun 08, 2016 Subjective No overnight event Blood pressure remained stable Patient remained alert more stronger today Exam Vital Signs Vital Sign - Last Date Time Temp Pulse Resp B/P Pulse Ox O2 Delivery O2 Flow Rate FiO2 06/08/16 15:42 Room Air 06/08/16 08:00 36.4 73 18 133/66 96 Intake and Output 06/07/16 06/07/16 06/08/16 Cumulative From/Thru 15:00 23:00 07:00 06/03/16 13:07 - 06/08/16 06:36 Intake Total 520 ml 0 ml 2990 ml Output Total 525 ml 200 ml 220 ml 2320 ml Balance -525 ml 320 ml -220 ml 670 ml Intake Oral 520 ml 0 ml 1970 ml IV Total 1020 ml Output Urine Total 525 ml 200 ml 220 ml 2320 ml # Bowel Movements 1 1 Exam NAD, comfortably laying down on the bed no JVD, MMM, no LAD RRR, nl s1, s2 no mrg CTAB, no w,c S,ND,NT,normoactive BS+ warm, no edema, pulses 2/2 IVs and Medications Medications Reviewed: Medications were reviewed in detail Lab and Diagnostics Result Diagram: 06/08/1651406/08/16514 X-Rays, CTs and MRIs xray abdomen IMPRESSION: Moderate stool consistent with constipation. No gross obstruction. Dictated by: Rhonda Acuña M.D. on 06/03/2016 at 13:53 Cardiac Echo Impressions The left ventricle is normal in size. There is moderate concentric left ventricular hypertrophy. There is mild biatrial enlargement. The IVC is of normal diameter and collapses greater than 50% with a sniff. This suggests a low right atrial pressure of 3 mm Hg. No other echocardiographic abnormalities seen. 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 -continue mild fluid restriction <2liter, avoid IVF, #Hypothyroid state, POA, pt stated that he had thyroid problem, lost wt significantly at age 16, didn't hear any final diagnosis, was not on any LT4 replacement in the past. Given degree of TSH>60, low ft4/t3, indicated for replacement, likely real primary hypothyroidism although anti TPO negative, -s/p LT4 25mcg iv 06/05, continue 50mcg qd, repeat TFT in 4wks to adjust dosage given age, risk of osteoporosis #Urinary retention/constipation, likely associated w/ BPH --continue flomax, MiraLAX chg to colace 100 tid to limit fluid. -d/yumiko rios 06/06, check with serial bladder scan today chronic, stable, #TYESHA, mildly, prerenal vs postobstructive, resolved with IVF 1liters/rios, cr 0.99-1.04 seemed baseline. #reported Suicidal ideation, denies currently, just c/o fatigue, follow up outpt. #Debility/poor mobility/chronic back pain due to compression fractures, control with tylenol #GERD/duodenitis history 2009, PPI for now #mild biatrial enlargement, found in TTE, nl EF, no restrictive physiology, could be related to hypothyroidism, follow up cardiology outpt Diet regular DVT prophylaxis lovenox Code full Disposition delayed d/c due to pending dispo, urinary retention, likely tomorrow home with vs SNF GI Prophylaxis: Proton Pump Inhibitor VTE Prophylaxis: Sub-Q Enoxaparin Resuscitation Status: DNR/DNI:Do Not Resuscitate/Intubate Time spent 35 minutes Yaakov Milan MD Jun 08, 2016 17:28
[2016-06-08 17:45] VITALS: BP 115/65; PULSE 79; RESP 16; O2SAT 99
--- NOTE | 2016-06-08 17:46 | NUR ---
Bladder scan Lex paged doctor r/t bladder scan 168cc end of shift. Awaiting call back.
--- NOTE | 2016-06-08 18:01 | NUR ---
[facility] Son in law notified nursing that Dr Mundo Zamarripa will be calling to [facility] tomorrow morning regarding [facility] approval.
[2016-06-08 21:04] VITALS: BP 149/65; PULSE 90; RESP 17; O2SAT 96
--- NOTE | 2016-06-08 23:45 | NUR ---
Urinary Retention Pt urinated 200mL at 2335 via urinal in bed. Bladder scan completed at 2345 and was 83mL.
[2016-06-09 05:45] VITALS: BP 132/66; PULSE 69; RESP 16; O2SAT 95
[2016-06-09] MEDS: Senna-Docusate 8.6-50 mg Tablet PO SCH ×2 (08:30→20:07)
[2016-06-09] MEDS: Pantoprazole 20 mg ER24 Tablet PO SCH (08:30)
[2016-06-09 09:31] VITALS: BP 152/67; PULSE 77; RESP 17; O2SAT 99
--- NOTE | 2016-06-09 10:42 | NUR ---
Called and spoke with Antoinette in transfer center at [facility], Clemencia WILLIAMSON is not in yet this morning. Left voicemail regarding decision on this patient and plan for discharge. Patient has been medically ready since yesterday. 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 Updated ELECTRIC TRUCKER
--- NOTE | 2016-06-09 12:56 | NUR ---
Activity Pt OOB ambulating in [place] with walker prior to lunch. >40 feet. x1 assist OOB, stand by with ambulation.
--- NOTE | 2016-06-09 15:48 | NUR ---
Social Work: Continued Discharge Planning Data & Assessment: SW spoke with patient, patient's daughter and patient's and they are all aware that [facility] denied SNF for the patient. The patient will discharge home with HH. The patient did not have a preference for home health. SW referred to [facility] and the home health is [facility] for this week. SW notified Trey at [facility] of the referral, faxed the [facility]2F , and gave [facility] access to the patient's chart. SW also provided patient with a Senior Resource guide for a list of private pay caregivers. Patient's daughter and son-in-law will pick him up from the hospital. SW will continue to follow. Plan: Patient will discharge home with HH via POV. SW will continue to follow. Josefa Benz LMSW, JASON
[2016-06-09 16:54] VITALS: BP 137/70; PULSE 71; RESP 15; O2SAT 96
--- NOTE | 2016-06-09 17:34 | NUR ---
discharge pt had lengthy discussion with PCP and hospitalist regarding dc home with HH as per SW and PCP, [facility] will not be able to make home visit till next . Hospitalist feels pt will be safe to dc home with , daughter and grandson who will all help with pt care post discharge. Addendum: 06/09/16 at 5382 by JESSICA HARRIS RN Per hospitalist and PCP, pt is actually to dc tomorrow when family has set up living space/grab bars at home. Dr. Urias, PCP, can be reached at [phone] this weekend if needed. Daughter MARTHA Angel, in agreement with plan for dc 06/10/16.
[2016-06-09 21:37] VITALS: BP 120/66; PULSE 75; RESP 18; O2SAT 97
[2016-06-10 03:06] VITALS: BP 144/64; PULSE 75; RESP 16; O2SAT 98
--- NOTE | 2016-06-10 05:19 | NUR ---
Activity Pt rested well. 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 Pt sats 93-98%. Pt let needs known. Pt did not want medication for back pain that was rated as 1-3/10. Care continues.
[2016-06-10 08:01] VITALS: PULSE 70; RESP 16; O2SAT 98
[2016-06-10] MEDS: Senna-Docusate 8.6-50 mg Tablet PO SCH (08:05)
[2016-06-10] MEDS: Pantoprazole 20 mg ER24 Tablet PO SCH (08:05)
[2016-06-10 08:08] LABS: REVERSE TRIIODOTHYRONINE 12 ng/dL (9.2-24.1)
[2016-06-10] MEDS ORDERED: Ergocalciferol (Vit D2) 50,000 Unit Capsule PO SCH (08:30)
[2016-06-10] MEDS ORDERED: 0.9% Sodium Chloride 500 ML IV SCH (10:55)
[2016-06-10 12:00] VITALS: BP 119/57; PULSE 67; RESP 18; O2SAT 98
--- NOTE | 2016-06-10 12:41 | NUR ---
Labs Hospitalist informed during rounds today of Na level of 131 on 06/09. Verbal order received for BMP and 500mls NS bolus over 2hrs. Labs drawn. Pt IV was found to be infiltrated, pt refused new IV and fluids. IV removed and warm pack applied. made aware.
--- NOTE | 2016-06-10 16:36 | NUR ---
Discharge Patient left floor at 1545 via wheelchair to be driven home by family. All discharge information discussed and understood by family, including medications and followup appointments. IV d/c'd intact. All belongings left with patient.
--- NOTE | 2016-06-10 16:59 | PCM.DC.MED ---
Discharge Summary Date of Service Jun 10, 2016 Dates of Hospitalization Date of Hospital Admission Jun 03, 2016 at 15:23 Date of Discharge: Jun 10, 2016 Providers: Admitting Physician: Yaakov Mace MD Primary Care Physician: Thomas Urias MD Attending Physician: Yaakov Mace MD Diagnosis at Time of Discharge Diagnosis at Time of Discharge Hyponatremia secondary to Hypothyroidism Urinary retention Acute kidney injury Procedures XRay, CTs & MRIs xray abdomen IMPRESSION: Moderate stool consistent with constipation. No gross obstruction. Dictated by: Rhonda Acuña M.D. on 06/03/2016 at 13:53 Cardiac Echo Impression The left ventricle is normal in size. There is moderate concentric left ventricular hypertrophy. There is mild biatrial enlargement. The IVC is of normal diameter and collapses greater than 50% with a sniff. This suggests a low right atrial pressure of 3 mm Hg. No other echocardiographic abnormalities seen. Hospital Course Patient was discharged home yesterday however the home equipment at the daughter 's house was not ready. Therefore the patient's discharge was delayed. Today the patient's sodium level was low at 131 however this was the same as it was yesterday. The patient lost IV access and refused to have another IV placed. The patient was told to go home and take sodium chloride tablets 1 g with lunchtime as the patient seems to be chronically hyponatremic. Patient should follow-up with his primary care within 1 week. Exam Vital Signs (Last) Date Time Temp Pulse Resp B/P Pulse Ox O2 Delivery O2 Flow Rate FiO2 06/10/16 08:01 70 16 98 Room Air 06/10/16 03:06 36.4 144/64 Exam Physical Exam: GEN: Patient was awake, alert, responding appropriately to questions HEENT: PERRLA, EOMI, Neck soft supple, trachea midline, nomocephalic/atraumatic CV: +S1/S2, RRR, systolic murmur auscultated Respiratory: CTAB, no wheezes, rales, rhonchi GI: +bowel sounds x4, soft, compressible, non TTP EXT: no c/c/e Neuro: CN II-XII grossly intact Psych: mood and affect were appropriate Test 06/03/16 13:03 06/03/16 13:13 06/03/16 13:49 06/03/16 15:03 Urine Osmolality 403mOs/kH2O (250-1200) Urinalysis Comment None Uric Acid 5.3mg/dL (2.6-7.2) Pro-B-Type Natriuretic Peptide 1172pg/mL (0-486) Urine Random Creatinine 61mg/dL (22-328) Urine Random Sodium 56mEq/L Test 06/03/16 17:00 06/04/16 05:30 06/04/16 07:45 06/05/16 15:10 D-Dimer 9.2mg/L (<0.50) Vitamin B12 Level 718pg/mL (211-946) Vitamin D 25-Hydroxy 47.2ng/mL (30.0-100.0) Folate > 19.9ng/mL (>3.0) Free Thyroxine Index 0.8 (1.2-4.9) Thyroxine (T4) 3.1ug/dL (4.5-12.0) Triiodothyronine (T3) Uptake 27% (24-39) Urine Color Yellow (YELLOW) Urine Appearance Hazy (CLEAR,HAZY) Urine pH 6.5 (5.0-8.0) Urine Specific [place] 1.020 (1.003-1.035) Urine Protein Negativemg/dL (NEG,TRACE) Urine Glucose (UA) Negativemg/dL (NEGATIVE) Urine Ketones Negativemg/dL (NEGATIVE) Urine Occult Blood Moderate (NEGATIVE) Urine Nitrite Negative (NEGATIVE) Urine Bilirubin Negative (NEGATIVE) Urine Urobilinogen Normalmg/dL (NORMAL) Urine Leukocyte Esterase Negative (NEGATIVE) Urine RBC >50/hpf (0-2) Urine WBC 6-10/hpf (0-5) Urine Epithelial Cells Occasional/hpf (NONE-MOD) Urine Crystals None seen (NONE SEEN) Urine Bacteria None/hpf (NONE-FEW) Urine Hyaline Casts None/lpf (NONE) Urine Granular Casts None seen (NONE SEEN) Urine Waxy Casts None seen (NONE SEEN) Urine Red Blood Cell Casts None seen (NONE SEEN) Urine White Blood Cell Casts None seen (NONE SEEN) Urine Mucus Present (None Seen) Urine Trichomonas None seen (NONE SEEN) Urine Yeast None (NONE SEEN) Urine Culture Reflexed Indicated Urine Random Uric Acid 78.4mg/dL (Not Estab.) Cortisol 18.8ug/dL (.) Thyroid Stimulating Hormone (TSH) 61.450uIU/mL (0.450-4.500) Free Thyroxine 0.48ng/dL (0.82-1.77) Test 06/05/16 17:50 06/06/16 05:35 06/08/16 05:15 06/09/16 06:25 Reverse Triiodothyronine (T3) 12ng/dL (9.2-24.1) Total Triiodothyronine 55ng/dL (71-180) Thyroid Peroxidase Antibodies 10IU/mL (0-34) White Blood Count 5.4th/mm3 (3.8-10.1) Red Blood Count 2.77mil/mm3 (4.40-5.80) Hemoglobin 9.1g/dL (13.8-17.2) Hematocrit 27.2% (41.0-50.0) Mean Corpuscular Volume 98.2fL (81-100) Mean Corpuscular Hemoglobin 32.9pg (27.0-35.0) Mean Corpuscular Hemoglobin Concent 33.5% (32.0-37.0) Red Cell Distribution Width 13.5% (12.3-15.4) Platelet Count 302bil/L (150-400) Neutrophils (%) (Auto) 60.5% (40-74) Lymphocytes (%) (Auto) 22.8% (14-46) Monocytes (%) (Auto) 13.5% (4-12) Eosinophils (%) (Auto) 2.6% (0-5) Basophils (%) (Auto) 0.4% (0-3) Phosphorus Level 2.9mg/dL (2.5-4.9) Magnesium Level 1.9mg/dL (1.6-2.6) Sodium Level 131mEq/L (134-144) Potassium Level 4.9mEq/L (3.5-5.2) Chloride Level 97mEq/L (97-108) Carbon Dioxide Level 24mmol/L (18-29) Blood Urea Nitrogen 21mg/dL (8-27) Creatinine 0.87mg/dL (0.76-1.27) Estimat Glomerular Filtration Rate 88mL/min (>59) Glucose Level 92mg/dL (60-99) Calcium Level 7.9mg/dL (8.5-10.1) Total Bilirubin 0.3mg/dL (0.0-1.2) Aspartate Amino Transf (AST/SGOT) 20U/L (0-50) Alanine Aminotransferase (ALT/SGPT) 9U/L (0-44) Alkaline Phosphatase 56U/L (25-160) Total Protein 5.1g/dL (6.4-8.4) Albumin 2.9g/dL (3.4-5.0) Discharge Medications Discharge Medications Calcium Carbonate/Vitamin D3 (Calcium + Vitamin D Tablet) 1 Each Tablet 1 EACH PO DAILY (Reported) Ferrous Sulfate (Iron) 325 Mg Capsule.er 325 MG PO DAILY (Reported) Levothyroxine (Levothyroxine) 50 Mcg Tablet 50 MCG PO DAILYAC Prescribed by: YAAKOV MACE MD Tamsulosin (Flomax) 0.4 Mg Capsule 0.4 MG PO DAILY Prescribed by: YAAKOV MACE MD Additional med instructions Please take Flomax 0.4mg daily, started for possible prostate problem Please take levothyroxine 50mcg daily before breakfast, dosage will be adjusted later in the clinic Followup Plan Follow-up plan These follow with her primary doctor in 2 weeks Patient Instructions you were hospitalized with weakness, low sodium level, found to have low thyroid function. Please note that your thyroid function has to be monitored, may need thyroid imagings as well, folllow up with your primary doctor, possible endocrinology doctor. Please restrict your fluid mildly less than 2liters per day, we expect your sodium to go up with thyroid hormone replacement Follow-up Provider: Thomas Urias MD Follow-up with PCP in: 2 weeks Meron Hollis DO Jun 10, 2016 10:53
--- NOTE | 2016-06-20 16:07 | PCM.PNMED ---
Subjective Date of Service Jun 09, 2016 Subjective No overnight event Exam Exam NAD, comfortably laying down on the bed no JVD, MMM, no LAD RRR, nl s1, s2 no mrg CTAB, no w,c S,ND,NT,normoactive BS+ warm, no edema, pulses 2/2 IVs and Medications Medications Reviewed: Medications were reviewed in detail Lab and Diagnostics X-Rays, CTs and MRIs xray abdomen IMPRESSION: Moderate stool consistent with constipation. No gross obstruction. Dictated by: Rhonda Acuña M.D. on 06/03/2016 at 13:53 Cardiac Echo Impressions The left ventricle is normal in size. There is moderate concentric left ventricular hypertrophy. There is mild biatrial enlargement. The IVC is of normal diameter and collapses greater than 50% with a sniff. This suggests a low right atrial pressure of 3 mm Hg. No other echocardiographic abnormalities seen. 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 -continue mild fluid restriction <2liter, avoid IVF, #Hypothyroid state, POA, pt stated that he had thyroid problem, lost wt significantly at age 16, didn't hear any final diagnosis, was not on any LT4 replacement in the past. Given degree of TSH>60, low ft4/t3, indicated for replacement, likely real primary hypothyroidism although anti TPO negative, -s/p LT4 25mcg iv 06/05, continue 50mcg qd, repeat TFT in 4wks to adjust dosage given age, risk of osteoporosis #Urinary retention/constipation, likely associated w/ BPH --continue flomax, MiraLAX chg to colace 100 tid to limit fluid. -d/yumiko rios 06/06, check with serial bladder scan today chronic, stable, #TYESHA, mildly, prerenal vs postobstructive, resolved with IVF 1liters/rios, cr 0.99-1.04 seemed baseline. #reported Suicidal ideation, denies currently, just c/o fatigue, follow up outpt. #Debility/poor mobility/chronic back pain due to compression fractures, control with tylenol #GERD/duodenitis history 2009, PPI for now #mild biatrial enlargement, found in TTE, nl EF, no restrictive physiology, could be related to hypothyroidism, follow up cardiology outpt Diet regular DVT prophylaxis lovenox Code full Disposition delayed d/c due to pending dispo, urinary retention, likely tomorrow home with vs SNF GI Prophylaxis: Proton Pump Inhibitor VTE Prophylaxis: Sub-Q Enoxaparin Resuscitation Status: DNR/DNI:Do Not Resuscitate/Intubate Time spent 35min Yaakov Milan MD Jun 20, 2016 16:07
== END 2016-06-10 15:45 | disposition home health service (06) | DRG 644 ==
LOC: SED 12:32 → EDUNIT# 12:32 → EDBD 12:32 → SED 15:06 → OBSVTOIN 15:23 → MOC 15:23
PROVIDERS: ADMIT Internal Medicine; ATTEND Urology
DX: E22.2 Syndrome of inappropriate secretion of antidiuretic hormone (principal); N17.9 Acute kidney failure, unspecified; R45.851 Suicidal ideations; E03.9 Hypothyroidism, unspecified; K21.9 Gastro-esophageal reflux disease without esophagitis; R53.81 Other malaise; N40.1 Benign prostatic hyperplasia with lower urinary tract symptoms; R33.8 Other retention of urine